=== PATIENT | female | born 1940 | race Caucasian/White ===

== ENCOUNTER 2017-06-02 10:24 | Day surgery (SDC) | payer MEDICARE, BC ==
[~2017-06-02 10:24] MED LIST: CHONDR SU A NA/HYALUR INTRAOC KIT (SURGICARE) ONE; EPINEPHRINE INJ/PF 1 MG/1 ML AMPULE ONE; KETOROLAC TROMETHAMINE 0.45% 4 DROP/0.4 ML DROPERETTE OD PRN; LIDOCAINE 1% INJ-PF (10 MG/ML) 30 ML SDV ONE
[2017-06-02] MEDS: CYCLOPENTOLATE 0.2%/PHENYLEPHRINE 1% OPH SOLN 2 ML OD PRN ×3 (11:06→11:26)
[2017-06-02] MEDS: TROPICAMIDE 1% OPH SOLN 3 ML OD PRN ×3 (11:07→11:27)
[2017-06-02] MEDS: BESIFLOXACIN HCL 0.6% OPH SUSP 5 ML BOTTLE OD PRN ×3 (11:08→11:57)
[2017-06-02] MEDS ORDERED: MIDAZOLAM 2 MG/2 ML INJ ONE (11:09)
[2017-06-02] MEDS: TETRACAINE HCL 0.5% OPH SOLN 2 ML OD PRN ×3 (11:10→11:30)
--- NOTE | 2017-06-02 20:19 | [facility] OPERATIVE REPORT E ---
[facility] Operative Report NAME: RHONDA FRANCISCO AGE: 77Y DATE OF SURGERY: 06/02/2017 ROOM: PREOPERATIVE DIAGNOSIS: CATARACT, RIGHT EYE. POSTOPERATIVE DIAGNOSIS: CATARACT, RIGHT EYE. OPERATION: Cataract extraction with intraocular lens implant of the right eye. SURGEON: BRAYAN LEIGH M.D. ANESTHESIA: Topical. TISSUE REMOVED OR ALTERED: PROCEDURE: After obtaining appropriate consent, the patient's right eye was prepped and draped in sterile fashion as well as the surgeon in a sterile manner and cataract surgery was started. First a paracentesis blade was used to make a small side-port incision. Viscoelastic was used to inflate the anterior chamber. Next a 2.4 mm incision was made with the paracentesis blade. A continuous capsulorrhexis incision was made using a cystotome and Utrata forceps. Following this hydrodissection was carried out to make the lens fully loose and mobile and it was rotated 90 degrees. Following this, a grzjto-bss-rfchsvn technique was used to phacoemulsify the lens with a CDE of 8.61. The remaining cortex was removed with irrigation/aspiration. Provisc was instilled into the capsular bag to inflate the bag. A SN60WF, 26.5 diopter lens was placed. The remaining viscoelastic material was removed with irrigation/aspiration. Following this, a 10-0 nylon suture was used to close the incision and it was found to be watertight. Vigamox was instilled in the eye and a protective shield was placed over the eye. The patient returned to the postoperative recovery in stable condition. DICTATING PHYSICIAN: BRAYAN LEIGH M.D. [id number] PHY#: [id number] ID: [id number] JOB#: [id number] ACCT: [id number] cc:BRAYAN LEIGH M.D. >
--- NOTE | 2017-06-02 20:24 | [facility] DISCHARGE SUMMARY E ---
[facility] Discharge Summary NAME: RHONDA FRANCISCO AGE: 77Y ADMITTED: 06/02/2017 DISCHARGED: 06/02/2017 HISTORY AND HOSPITAL COURSE: This is a 77-year-old female who underwent cataract extraction of the right eye. She underwent surgery because she was having difficulty reading small print. FINAL DIAGNOSIS: Cataract, right eye. DISCHARGE INSTRUCTIONS: She should be on a regular diet. No bending at her waist, no heavy lifting. She should use Besivance, Ilevro and Durezol at 3:00 p.m. and 8:00 p.m. Sleep with a rigid shield. I will see her for a 1-day postoperative tomorrow. DICTATING PHYSICIAN: BRAYAN LEIGH M.D. [id number] PHY#: [id number] 1955 ID: [id number] JOB#: [id number] ACCT: [id number] cc:BRAYAN LEIGH M.D. >
== END 2017-06-02 12:43 | disposition home or self-care (01) ==
LOC: SC 10:24
PROVIDERS: ATTEND Internal Medicine
PROC: 08RJ3JZ Replacement of Right Lens with Synthetic Substitute, Percutaneous Approach (ICD-10-PCS; principal; 2017-06-02 12:00)
DX: H25.811 Combined forms of age-related cataract, right eye (principal); H57.03 Miosis; Z96.1 Presence of intraocular lens; I10 Essential (primary) hypertension; M19.90 Unspecified osteoarthritis, unspecified site; E11.9 Type 2 diabetes mellitus without complications; E07.9 Disorder of thyroid, unspecified; Z79.82 Long term (current) use of aspirin; Z79.899 Other long term (current) drug therapy; Z79.1 Long term (current) use of non-steroidal anti-inflammatories (NSAID)
CPT/HCPCS: 66984; V2632; J2250; J3490 ×2; A9270; J0171; 142